=== PATIENT | female | born 1965 | race African-American/Black ===

== ENCOUNTER 2018-03-12 07:07 | Day surgery (SDC) | payer OTHER ==
[2018-03-11 13:15] VITALS: BMI 38.0
[2018-03-12] MEDS ORDERED: IBUPROFEN 600 MG TABLET (FP) PO PRN (09:23)
[2018-03-12] MEDS ORDERED: oxyCODONE HCL 5 MG TABLET PO PRN (09:23)
[2018-03-12] MEDS ORDERED: ONDANSETRON 4 MG/2 ML VIAL IVPUSH PRN ×2 (09:23→11:20)
[2018-03-12] MEDS ORDERED: IBUPROFEN 800 MG/8 ML IJ IVPB PRN (09:23)
--- NOTE | 2018-03-12 09:23 | HP ---
History & Physical Update - History History: No Change - Physical Physical: No Change - Assessment Assessment: No Change - Plan Plan: No Change (COnsent signed and witnessed All questions answered)
--- NOTE | 2018-03-12 09:25 | OP ---
Operative Note - Note: Operative Date: 03/12/18 Pre-Operative Diagnosis: 53yo P3 with fibroids, abnormal uterine bleeding, anemia, obesity Operation: Hysteroscopy/Myomectomy/D&C Findings: 1. Irregular shaped, large uterine cavity 2. Stage 2 Submucosal fibroid - 3.5cm 3. Cervical 2cm polyp Post-Operative Diagnosis: Same as Pre-op Surgeon: Izabel Heaton Anesthesiologist/ASSOCIATE PROFESSOR OF ART HISTORY: Tamika Mcduffie MD Anesthesia: General Specimens Removed: 1. Cervical polyp. 2. Fibroid and Endometrial curettings Estimated Blood Loss (mls): 10 Drains & Tubes with Location: Fluid deficit - 500cc Drains, Volume Out (mls): 100 Fluid Volume Replaced (mls): 1,000 Operative Report Dictated: Yes
[2018-03-12] MEDS ORDERED: ELECTROLYTE-148 SOLN 1,000 ML IV SCH (09:30)
[2018-03-12] MEDS ORDERED: MIDAZOLAM HCL 2 MG/2 ML SINGLE DOSE VIAL ONE (09:48)
[2018-03-12] MEDS ORDERED: fentaNYL CITRATE 250 MCG/5 ML VIAL ONE (10:06)
[2018-03-12] MEDS ORDERED: ROCURONIUM BROMIDE 50 MG/5 ML VIAL ONE (10:06)
[2018-03-12] MEDS ORDERED: PROPOFOL 20 ML ONE (10:06)
[2018-03-12] MEDS ORDERED: ePHEDrine SULFATE 50 MG/1 ML AMPULE ONE (10:25)
[2018-03-12] MEDS ORDERED: NEOSTIGMINE METHYLSULFATE 0.5 MG/ML - 10 ML MDV ONE (10:51)
[2018-03-12] MEDS ORDERED: LACTATED RINGERS SOLUTION 1,000 ML IV SCH (11:30)
[2018-03-12 12:45] VITALS: TEMP 97.5
[2018-03-12 14:11] VITALS: BP 129/79; PULSE 72
--- NOTE | 2018-03-12 20:31 | OP ---
DATE OF OPERATION: 03/12/2018 PREOPERATIVE DIAGNOSES: A 53-year-old, para 3, with fibroids, abnormal uterine bleeding, anemia, obesity. POSTOPERATIVE DIAGNOSES: A 53-year-old, para 3, with fibroids, abnormal uterine bleeding, cervical polyp, anemia, obesity. OPERATION: Hysteroscopy, myomectomy, polypectomy, dilation and curettage. FINDINGS: 1. Irregular-shaped large uterine cavity. 2. Stage 2 submucosal fibroid 3.5 cm. 3. Cervical 2 cm polyp. SURGEON: Izabel Heaton MD ANESTHESIOLOGIST: Tamika Mcduffie MD ANESTHESIA: General. SPECIMENS REMOVED: 1. Cervical polyp. 2. Fibroid and endometrial curettings. ESTIMATED BLOOD LOSS: 10 mL. FLUID DEFICIT: 500 mL. URINE OUTPUT: 100 mL. FLUID REPLACED: 1000 mL. DESCRIPTION OF THE OPERATIVE PROCEDURE: After assuring informed consent, patient was brought to the operating room, where she was placed under the general anesthesia. The perineum and vagina were prepped and draped in sterile fashion. A Symphion hysteroscope was assembled, prepped, and wide balanced. The cervix was visualized by placing Menjivar specula into the vagina. The cervical anterior lip was articulated with single-tooth tenaculum. The cervix was dilated with gradually increasing in size dilators to accommodate 6-mm hysteroscope. Hysteroscope was introduced into the cavity atraumatically with above findings. Prior to introduction of hysteroscope, the cervical polyp was removed with polyp forceps. The resectoscope device was introduced through the operative port of the hysteroscope and majority of a 3.5 cm fibroid was resected. Excellent hemostasis was achieved. Also, endometrial curettings were collected with resectoscope, circumferentially shaving the cavity. Subsequently hysteroscope was removed from the uterine cavity. All the instruments were removed from cervix, uterus, and vagina. Excellent hemostasis was noted. The sponge and instrument counts were correct x2. The patient was brought to the recovery room, extubated, in stable condition. Annika [id number]
--- NOTE | 2018-03-13 19:03 | PATH ---
Surgical Pathology Report Patient Name: MARTIN KAUR [facility]. Rec. #: [id number] /Age/Gender: 1965 (Age: 53) / F Account: [id number] Location: [facility] SURGICAL Taken: 03/12/2018 Received: 03/12/2018 Reported: 03/13/2018 Physicians: Izabel Heaton M.D. Specimen(s) Received A: CERVICAL POLYP B: FIBROD/ENDOMETRIAL CURETTINGS Clinical History Fibroids, uterus/abnormal uterine and vaginal bleeding Final Diagnosis A. CERVICAL POLYPS, DILATION AND CURETTAGE: FRAGMENTS OF ENDOCERVICAL POLYP, ACUTELY INFLAMED. B. ENDOMETRIAL CURETTINGS, DILATION AND CURETTAGE: FRAGMENTS OF ENDOCERVICAL POLYP, LEIOMYOMA, AND SCANT WEAKLY PROLIFERATIVE ENDOMETRIUM. Electronically Signed Isabell Knight M.D. Gross Description A. Received in formalin labeled "cervical polyp" is a polypoid pink-tobias tissue measuring 0.7 x 0.7 x 0.6. The specimen is bisected and entirely submitted in one cassette. B. Received in formalin labeled "fibrin/endometrial curettings" are multiple fragments of pink-tobias focally hemorrhagic tissue measuring 4 x 4 x 0.5 cm in aggregate. Entire specimen submitted in 4 cassettes. [email or web address]/03/12/2018 cat/03/12/2018
== END 2018-03-12 14:12 | disposition home or self-care (01) ==
LOC: JASU-SURG 07:07
PROVIDERS: ATTEND Obstetrics & Gynecology
PROC: 0UBC8ZX Excision of Cervix, Via Natural or Artificial Opening Endoscopic, Diagnostic (ICD-10-PCS; 2018-03-12)
PROC: 0UB98ZX Excision of Uterus, Via Natural or Artificial Opening Endoscopic, Diagnostic (ICD-10-PCS; 2018-03-12)
PROC: 0UB98ZZ Excision of Uterus, Via Natural or Artificial Opening Endoscopic (ICD-10-PCS; principal; 2018-03-12 08:30)
DX: D25.0 Submucous leiomyoma of uterus (principal); N84.1 Polyp of cervix uteri; N93.9 Abnormal uterine and vaginal bleeding, unspecified; D64.9 Anemia, unspecified; E66.9 Obesity, unspecified; Z68.38 Body mass index [BMI] 38.0-38.9, adult
CPT/HCPCS: 76856-TC; 76998-TC; 84703; 88305-TC; 94760